=== PATIENT | female | born 1990 | race Caucasian/White ===

== ENCOUNTER 2021-11-29 13:17 | Inpatient (IN) | payer SELFPAY ==
[~2021-11-29] VITALS: Ht 170 cm; Wt 60.0 kg
== END 2021-11-29 14:48 | disposition home or self-care (01) | DRG 951 ==
LOC: 3 EAST 13:17
PROVIDERS: ADMIT Internal Medicine
DX: Z53.8 Procedure and treatment not carried out for other reasons (principal)
CPT/HCPCS: 82565; 84132